=== PATIENT | female | born 1995 | race Caucasian/White ===

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

== ENCOUNTER 2017-07-05 09:27 | Emergency (ER) | payer OTHER ==
[~2017-07-05] VITALS: Ht 160 cm; Wt 79.0 kg
[2017-07-05 09:33] VITALS: BP 120/69
[2017-07-05 11:28] VITALS: PULSE 72; TEMP 97
== END 2017-07-05 10:50 | disposition home or self-care (01) ==
LOC: COL.ER 09:27
DX: O98.811 Other maternal infectious and parasitic diseases complicating pregnancy, first trimester (principal); O99.351 Diseases of the nervous system complicating pregnancy, first trimester; J02.0 Streptococcal pharyngitis; F41.9 Anxiety disorder, unspecified; F32.9 Major depressive disorder, single episode, unspecified; Z88.2 Allergy status to sulfonamides; Z3A.00 Weeks of gestation of pregnancy not specified
CPT/HCPCS: J0561

== ENCOUNTER 2017-08-16 15:36 | Emergency (ER) | payer OTHER ==
[~2017-08-16] VITALS: Ht 160 cm; Wt 78.6 kg
[2017-08-16 15:39] VITALS: BP 122/56
[2017-08-16 16:23] LABS: BASO % 0.3 % (0.0-2.0); EOS # 0.2 (0.0-0.7); EOS % 1.4 % (0-4.0); GRAN # 8.6 (1.4-6.5); GRAN % 77.9 % (42.2-75.2); HEMATOCRIT 33.7 % (35.0-45.0); HEMOGLOBIN 11.6 g/dl (12.0-15.0); LYMPH # 1.4 (1.2-3.4); MEAN CELL VOLUME 90 fl (80.0-95.0); MEAN CORPUSCULAR HEMOGLOBIN 31 pg (26.0-32.0); MEAN CORPUSCULAR HGB CONC 34 g/dl (33.0-37.0); MEAN PLATELET VOLUME 9.1 fl (7.4-10.4); MONO # 0.8 (0.1-0.6); PLATELET COUNT 234 K/mm3 (130-400); RED BLOOD COUNT 3.73 M/mm3 (4.10-5.30); REDCELL DISTRIBUTION WIDTH-CV 13.4 % (11.5-14.5)
[2017-08-16 16:32] LABS: ALBUMIN 3.1 gm/dL (3.5-5.0); BILIRUBIN,TOTAL 0.3 mg/dL (0.0-1.0); CREATININE, serum 0.5 mg/dL (0.52-1.25); POTASSIUM 3.8 mmol/L (3.4-5.0); TOTAL PROTEIN 6.5 gm/dL (6.4-8.2)
[2017-08-16 18:30] VITALS: PULSE 70; TEMP 97.9
== END 2017-08-16 18:27 | disposition home or self-care (01) ==
LOC: COL.ER 15:36
PROVIDERS: Emergency Medicine
DX: O99.352 Diseases of the nervous system complicating pregnancy, second trimester (principal); G43.109 Migraine with aura, not intractable, without status migrainosus; Z3A.00 Weeks of gestation of pregnancy not specified
CPT/HCPCS: J0780; J1170; J1200; J1885; J7030

== ENCOUNTER 2023-05-25 22:41 | Emergency (ER) | payer MEDICAID ==
[~2023-05-25] VITALS: Ht 160 cm; Wt 81.8 kg
[~2023-05-25 22:41] MED LIST: IBU600 MG PO; PRENATAL MVI PO
[2023-05-25 22:49] VITALS: TEMP 98.1
[2023-05-25 23:58] VITALS: BP 119/79; PULSE 82
== END 2023-05-25 23:58 | disposition home or self-care (01) ==
LOC: COL.ER 22:41
DX: B34.9 Viral infection, unspecified (principal); R19.7 Diarrhea, unspecified; R11.2 Nausea with vomiting, unspecified; R23.4 Changes in skin texture; F17.210 Nicotine dependence, cigarettes, uncomplicated; F17.290 Nicotine dependence, other tobacco product, uncomplicated